=== PATIENT | male | born 1940 | race Caucasian/White ===

== ENCOUNTER → 2017-02-14 | Outpatient (CLI) | payer OTHER ==
[~2017-02-14] MED LIST: AMARYL2 MG PO; ATORVASTATIN CA80 MG PO; CARVEDILOL25 MG PO; CLOPIDOGREL75 MG PO; DAILY VITE1 EAC1 PO; DUONEB 2.5-0.5 M3 ML AEROSOL; FENOFIBRATE160 M1 PO; GLUCOSAMINE H1500 MG PO; JANUVIA25 M1 PO; K-DUR20 MEQ PO; LASIX80 MG PO; LOSARTAN POTASS50 MG PO; MAGNESIUM400 M1 PO; MIRALAX17 GM PO; NITROSTAT0.4 MG SL; NORTRIPTYLINE H10 MG PO; NORVASC10 MG PO; OFEV150 MG PO; OPTIFLEX-C400 MG PO; PREDNISONE5 MG PO; SPIRIVA1 INHALATI IH; SYMBICORT60 INHALAT IH; SYNTHROID75 MCG PO; TRULICITY1.5 MG/0.5 SC; VITAMIN D315 ML PO; VITAMIN E100 UNIT PO; [UNRECOGNIZED DRUG - OTHER] PO; [UNRECOGNIZED DRUG - OTHER] PO
[2017-02-14 10:27] LABS: POINT-OF-CARE METER ID UU14174212
[2017-02-14 13:29] LABS: POINT-OF-CARE METER ID UU13113819
== END | disposition home or self-care (01) ==
LOC: OPR 02-13 10:00 → EDSTATUS 10:00
PROVIDERS: Surgery
DX: C77.2 Secondary and unspecified malignant neoplasm of intra-abdominal lymph nodes (principal); Z85.038 Personal history of other malignant neoplasm of large intestine
CPT/HCPCS: 77012; 82948; 88184 90; 88185 90; 88189 90; 88305; 88341 TC; 88342 TC; J2405; J3010